=== PATIENT | female | born 2000 | race Caucasian/White ===

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

== ENCOUNTER 2022-08-25 07:41 | Emergency (ER) | payer MEDICAID ==
[~2022-08-25] VITALS: Ht 160 cm; Wt 84.0 kg
[2022-08-25 07:55] VITALS: O2SAT 100
[2022-08-25] MEDS ORDERED: IBUP-2029 MT (09:49)
[2022-08-25 10:00] VITALS: BP 127/84; PULSE 79; RESP 21; TEMP 98.3
== END 2022-08-25 10:01 | disposition home or self-care (01) ==
LOC: ER 07:41
DX: M25.511 Pain in right shoulder (principal)
CPT/HCPCS: 73030; 99283

== ENCOUNTER 2023-01-04 18:51 | Emergency (ER) | payer MEDICAID, OTHER ==
[~2023-01-04] VITALS: Ht 160 cm; Wt 84.0 kg
[~2023-01-04 18:51] MED LIST: IBUP-2029 MT
[2023-01-04 19:01] VITALS: BP 118/80; O2SAT 100
[2023-01-04] MEDS ORDERED: TOPUD MT (21:53)
[2023-01-04] MEDS ORDERED: CEPH500C2 MT (21:53)
[2023-01-04] MEDS ORDERED: IBUP-2029 MT (21:53)
[2023-01-04 22:11] VITALS: PULSE 86; RESP 18; TEMP 98.9
== END 2023-01-04 22:13 | disposition home or self-care (01) ==
LOC: ER 18:51
DX: L02.01 Cutaneous abscess of face (principal)
CPT/HCPCS: 10060; 81025; 99283

== ENCOUNTER 2024-07-17 22:16 | Emergency (ER) | payer MEDICAID ==
[~2024-07-17] VITALS: Ht 161.3 cm; Wt 83.0 kg
[~2024-07-17 22:16] MED LIST changes: +CEPH500C2 MT; +TOPUD MT
[2024-07-17 22:55] VITALS: O2SAT 99
[2024-07-18] MEDS ORDERED: AMOX1TAB16 MT (02:49)
[2024-07-18] MEDS ORDERED: TOPUD PO (02:52)
[2024-07-18] MEDS ORDERED: IBUP-2029 MT (02:52)
[2024-07-18 03:24] VITALS: BP 128/76; PULSE 88; RESP 16; TEMP 37; O2SAT 99
== END 2024-07-18 03:27 | disposition home or self-care (01) ==
LOC: ER 22:16
DX: Q18.1 Preauricular sinus and cyst (principal); Z79.899 Other long term (current) drug therapy
CPT/HCPCS: 99283